=== PATIENT | male | born 1965 | race Caucasian/White ===

== ENCOUNTER 2020-12-04 22:12 | Emergency (ER) | payer MEDICARE, OTHER ==
[~2020-12-04 22:12] MED LIST: DILANTIN 100 M100 MG PO; LEVAQUIN750 MG PO; PRIMIDONE PO; TYLENOL 500 MG500 MG PO
[2020-12-05 02:02] LABS: HEMOGLOBIN 13.2 gm/dl (14.0-17.5); RED BLOOD COUNT 4.4 M/UL (4.20-5.50); WHITE BLOOD COUNT 5.4 K/UL (4.5-11.0)
[2020-12-05 02:30] LABS: BUN/CREATININE RATIO 21 (0-10)
== END 2020-12-05 04:45 | disposition home or self-care (01) ==
LOC: ER1 22:12
PROVIDERS: Family Medicine
DX: R53.1 Weakness (principal); Z20.822 Contact with and (suspected) exposure to COVID-19
CPT/HCPCS: 71045; 80053; 82550; 82553; 83735; 83874; 84439; 84443; 84484; 85025; 93005; 99285; U0002

== ENCOUNTER 2021-01-04 21:22 | Emergency (ER) | payer MEDICARE, OTHER ==
[2021-01-04 23:32] LABS: BUN/CREATININE RATIO 17 (0-10)
[2021-01-05 00:22] LABS: HEMOGLOBIN 13.1 gm/dl (14.0-17.5); RED BLOOD COUNT 4.56 M/UL (4.20-5.50)
[2021-01-05] MEDS ORDERED: ZOFRAN ODT 4 MG4 MG PO (00:46)
[2021-01-05] MEDS ORDERED: VENTOLIN HFA 66.7 GM INH (00:46)
[2021-01-05] MEDS ORDERED: DOXYCYCLINE MO100 MG PO (00:46)
== END 2021-01-05 01:59 | disposition home or self-care (01) ==
LOC: ER1 21:22
PROVIDERS: Physician Assistant
DX: R06.00 Dyspnea, unspecified (principal); R11.2 Nausea with vomiting, unspecified; R05 Cough; R50.9 Fever, unspecified; Z88.0 Allergy status to penicillin; Z20.822 Contact with and (suspected) exposure to COVID-19
CPT/HCPCS: 71045; 80053; 82550; 82553; 83874; 83880; 84484; 85025; 99285; U0002

== ENCOUNTER 2021-04-08 22:16 | Emergency (ER) | payer MEDICARE, OTHER ==
[~2021-04-08 22:16] MED LIST changes: +DOXYCYCLINE MO100 MG PO; +VENTOLIN HFA 66.7 GM INH; +ZOFRAN ODT 4 MG4 MG PO
[2021-04-08 23:13] LABS: HEMOGLOBIN 12.1 gm/dl (14.0-17.5); RED BLOOD COUNT 4.21 M/UL (4.20-5.50)
[2021-04-08 23:29] LABS: BUN/CREATININE RATIO 21 (0-10)
[2021-04-09] MEDS ORDERED: CLINDAMYCIN HC150 MG PO (00:07)
== END 2021-04-09 00:35 | disposition home or self-care (01) ==
LOC: ER1 22:16
PROVIDERS: Nurse Practitioner
DX: L02.213 Cutaneous abscess of chest wall (principal)
CPT/HCPCS: 10060; 80048; 85025; 99283

== ENCOUNTER 2021-10-20 15:47 | Emergency (ER) | payer MEDICARE, OTHER ==
[~2021-10-20 15:47] MED LIST changes: +CLINDAMYCIN HC150 MG PO
== END 2021-10-20 18:36 | disposition home or self-care (01) ==
LOC: ER1 15:47
DX: S20.222A Contusion of left back wall of thorax, initial encounter (principal); W21.03XA Struck by baseball, initial encounter; Y93.64 Activity, baseball; Y92.009 Unspecified place in unspecified non-institutional (private) residence as the place of occurrence of the external cause
CPT/HCPCS: 71111; 99283